=== PATIENT | male | born 1985 | race Caucasian/White ===

== ENCOUNTER → 2018-04-28 07:25 | Outpatient (CLI) | payer OTHER, SELFPAY ==
[2018-04-28 08:08] LABS: Semen Sperm Prescence Post-Vas Absent (ABSENT)
== END ==
PROVIDERS: PCP Family Medicine; Visit Provider Surgery
DX: N46.9 Male infertility, unspecified (principal)
CPT/HCPCS: 89321

== ENCOUNTER → 2018-05-05 06:54 | Outpatient (CLI) | payer OTHER, SELFPAY ==
[2018-05-05 07:26] LABS: Semen Sperm Prescence Post-Vas Absent (ABSENT)
== END ==
PROVIDERS: PCP Family Medicine
DX: Z98.52 Vasectomy status (principal)
CPT/HCPCS: 89321

== ENCOUNTER → 2021-02-18 10:11 | Outpatient (CLI) | payer OTHER, SELFPAY ==
[2021-02-18] MEDS: COVID-19 VACC, Ad26(JANSSEN)/PF 0.5 ML IM (10:18)
== END ==
PROVIDERS: PCP Family Medicine; Visit Provider Internal Medicine
DX: Z23 Encounter for immunization (principal)
CPT/HCPCS: 0031A; 91303

== ENCOUNTER → 2022-12-14 09:18 | Outpatient (ROUT) | payer BC, SELFPAY ==
[2022-12-14 10:00] LABS: COVID-19 CEPHEID 4-PLEX PCR Negative (Negative); Influenza A - CEPHEID Flu A NEGATIVE (NEGATIVE); Influenza B - CEPHEID Flu B NEGATIVE (NEGATIVE); Respiratory Syncytial Virus Negative (Negative)
== END ==
PROVIDERS: PCP Family Medicine; Visit Provider Family Medicine
DX: Z20.822 Contact with and (suspected) exposure to COVID-19 (principal)
CPT/HCPCS: 0241U